=== PATIENT | female | born 2000 | race Caucasian/White ===

== ENCOUNTER 2025-10-01 21:16 | Emergency (ER) | payer OTHER, SELFPAY ==
--- NOTE | ~2025-10-01 | XR_ITS ---
CLINICAL HISTORY: lac form ux designer blade 4th digit 3 view right 4th digit Comparison: None Findings: No fractures or dislocations. No significant loss of joint space or osteophytes. Radiopaque linear object corresponds to the ux designer blade within the soft tissue of the 4th digit. IMPRESSION: 1. No evidence of acute osseous injury. 2. Radiopaque linear object corresponds to the ux designer blade within the soft tissue of the 4th digit. This document has been electronically signed by: Faye Roberts MD on 10/01/2025 23:00:35
[2025-10-01 21:47] VITALS: BP 119/56; PULSE 90; RESP 18; TEMP 36.8; O2SAT 98; BMI 24.0
--- NOTE | 2025-10-01 22:33 | ED.WOUNDLAC ---
HPI - Wound/Laceration General Chief Complaint: Wound/Laceration Stated Complaint: Injury Time Seen by Provider: 10/01/25 22:11 History of Present Illness ED Provider: Iva Romero NP HPI narrative: 24-year-old female who presents to the ED complaining of a finger laceration sustained to her right ring finger when she was trying to clean mineral technologist blades approximately 1 hour prior to arrival. She has 2 small lacerations, 1 to the tip of the fat pad of the finger, another to the MCP joint on the palmar surface. She does not know her last tetanus status. Bleeding controlled upon arrival to the ED. She denies any fever, chills, chest pain or shortness of breath, abdominal pain. Otherwise feeling well. Related Data Allergies Allergy/AdvReac Type Severity Reaction Status Date / Time No Known Allergies Allergy Verified 10/01/25 21:49 Review of Systems Review of Systems: ROS is otherwise negative unless mentioned in HPI. PMFSH Social History Social History Advance Directives: No Advance Directives Information Provided: Yes Physical Exam Exam: Exam: Nursing notes and vital signs reviewed. Constitutional: Well-appearing, NAD. Alert. Oriented X3. Eyes: Symmetrical. Neck: Normal inspection. Neck supple. CVS: Pulses normal. Respiratory: No respiratory distress. Skin: Skin warm and dry. Normal skin color. Small laceration 0.5 cm to the right hand ring finger, overlying the MCP joint. Additional small superficial laceration to the fat pad of this finger. Extremities: No lower extremity edema. Neuro: Oriented X 3. No motor deficit. Vital Signs: Vital Signs: Last Vital Signs Temp 98.2 F 10/01/25 21:47 Pulse 90 10/01/25 21:47 Resp 18 10/01/25 21:47 BP 119/56 L 10/01/25 21:47 Pulse Ox 98 10/01/25 21:47 O2 Del Method Room Air 10/01/25 21:47 BMI result Body Mass Index 24.0 Medications Administered Discontinued Medications Generic Name Dose Route Start Last Admin Trade Name Freq PRN Reason Stop Dose Admin Diphtheria/Tetanus/Acell Pertussis 0.5 ml 10/01/25 22:36 10/01/25 22:47 Diphth,Pertus(Acell),Tet Adult 0.5 Ml Syringe IM 10/01/25 22:37 0.5 ml .ONCE ONE Administration Lidocaine/Epinephrine/Tetracaine 3 ml 10/01/25 22:33 10/01/25 22:44 Lidocaine/Racepinep/Tetracaine 3 Ml Gel.Pf.Barb TOPICAL 10/01/25 22:34 3 ml ONCE ONE Administration Medical Decision Making Medical Decision Making [facility] Narrative: 10:30 PM 10/01/2025 (Iva Romero, GERRI): I assessed this patient in the PIT area, she presents for a finger laceration. She was cleaning a mineral technologist when she accidentally cut her finger, and to the larger laceration that is overlying the MCP joint of the finger there is fat protruding. We will plan to apply topical LET to the area is prior to the repair with sutures, and possibly applied Dermabond to the fat pad of the finger. We discussed the Tdap vaccine, she does not know her last vaccine, and does not want the vaccine today. I stressed the importance of getting the vaccine especially if her last is unknown. She will consider it. Pending topical LET application. 11:35 PM 10/01/2025 (Iva Romero, GERRI): Ring was removed from finger. X-ray report reports a mineral technologist blade , upon my review of the x-ray, this is clearly her ring that she had not removed prior to x-ray. She accepted the Tdap vaccine. Area was repaired with 1 suture. Agreeable with dc plan to follow up outpatient for removal. And return precautions. She is agreeable. Differential Diagnosis Differential Diagnoses: The differential diagnosis associated with the presentation includes Laceration, abrasion, cellulitis Admission/Observation Consideration of admission/observation: Escalation of care including admission/observation considered (Not indicated) Independent Interpretation I performed an independent interpretation of an: Plain X-Ray Interpretation: I do not agree with the radiologist interpretation; there is no foreign body within the fingers, she is wearing her ring. Radiology Impression Discussion of test interpretation with radiology: I have reviewed the radiologist's reading. Radiologist Impression: IMPRESSION: 1. No evidence of acute osseous injury. 2. Radiopaque linear object corresponds to the mineral technologist blade within the soft tissue of the 4th digit. Independent Historian Clinical information obtained from an independent historian. History obtained from or confirmed by: Other (Boyfriend) External Record Review None Chronic Conditions None Social Determinants Patient?s care significantly limited by Social Determinants of Health including: Problems related to primary support group Discharge Plan Discharge Clinical Impression: Laceration of finger, ring Patient Disposition: Home, Self-Care Instructions: Finger Laceration (ED) Additional Instructions: As we discussed, we placed 1 suture to the right hand, your ring finger. This suture should be removed within the next 7-10 days. If you develop any signs of infection which include redness, warmth, difficulty moving the finger, it is very important that you seek re-evaluation immediately. We updated your Tdap today. Please inform your PCP of this, so they are aware. Referrals: [facility] [Provider Group, Family Practice] Print Language: Khmer
--- OUTSIDE RECORDS SUMMARY | 2025-10-01 22:41 | XMS_ITS | Encounter Summary ---
Author Organization [facility] Address [address] [place], [place] [id number] Phone Care Team Providers Care Hog Room Supervisor Name Role Phone Fawn Galindo DO Primary Care Provider [phone] Reason for Visit * Reason Comments Med Refill Encounter Details Date Type Department Care Team (Late st Contact Info) Description 03/08/2018 Refill [facility] [place] [address] [place], [place] [id number] Fawn Galindo DO [address] [place] [address] Social History Tobacco Use Types Packs/Day Years Used Date Smoking Tobacco: Never Comments:Never smoker Comments Unknown Sex and Gender Information Value Date Recorded Sex Assigned at Not on file Legal Sex Female 5:09 PM EDT Gender Identity Not on file Sexual Orientation Not on file documented as of this encounter Miscellaneous Notes * Telephone Encounter - Kay Lemons LPN - 03/11/2018 11:25 AM EDT Seen in office * Telephone Encounter - Kay Lemons LPN - 03/08/2018 11:40 AM EDT SPRINTEC 28 DAY TABLET Last pe 03/17 Pe pending for 03/18 documented in this encounter Plan of Treatment Not on file documented as of this encounter Visit Diagnoses Not on filedocumented in this encounter Care Teams Hog Room Supervisor Relationship Specialty Start Date End Date Fawn Galindo DO [address] [place] [address] [place] [address] PCP - General 06/11/17 04/21/23 documented as of this encounter
--- OUTSIDE RECORDS SUMMARY | 2025-10-01 22:41 | XMS_ITS | Encounter Summary ---
Author Organization [facility] Address [address] [place] [address] Phone Care Team Providers Care Sales Marketing Manager Name Role Phone Fawn Galindo DO Primary Care Provider Reason for Visit * Reason Comments Med Refill Encounter Details Date Type Department Care Team ([facility] st Contact Info) Description 02/08/2019 Refill [facility] [place] [address] [place] [address] Fawn Galindo DO [address] [place] [address] Encounter for control pills maintenance Social History Tobacco Use Types Packs/Day Years Used Date Smoking Tobacco: Never Smokeless Tobacco: Never Comments:Never smoker Comments Unknown Sex and Gender Information Value Date Recorded Sex Assigned at Not on file Legal Sex Female 5:09 PM EDT Gender Identity Not on file Sexual Orientation Not on file documented as of this encounter Miscellaneous Notes * Telephone Encounter - Emelyn Cr LPN - 02/08/2019 1:07 PM EDT Pharm fax refill request OCP. EH documented in this encounter Plan of Treatment Not on file documented as of this encounter Visit Diagnoses Diagnosis Encounter for control pills maintenance Surveillance of previously prescribed contraceptive pill documented in this encounter Care Teams Sales Marketing Manager Relationship Specialty Start Date End Date Fawn Galindo DO [address] [place] [address] PCP - General 06/11/17 04/21/23 documented as of this encounter
--- OUTSIDE RECORDS SUMMARY | 2025-10-01 22:41 | XMS_ITS | Encounter Summary ---
Author Organization [facility] Address [address] [place] [address] Phone Care Team Providers Care Shop Clerk Name Role Phone Fawn Galindo DO Primary Care Provider [phone] Encounter Details Date Type Department Care Team (Late st Contact Info) Description 06/27/2014 Documentation [facility] Family Medicine [address] [place] [address] Family Medicine, Physician [address] [place], [place] [id number] Social History Tobacco Use Types Packs/Day Years Used Date Smoking Tobacco: Never Assessed Comments Unknown Sex and Gender Information Value Date Recorded Sex Assigned at Not on file Legal Sex Female 5:09 PM EDT Gender Identity Not on file Sexual Orientation Not on file documented as of this encounter Plan of Treatment Not on file documented as of this encounter Visit Diagnoses Not on filedocumented in this encounter Care Teams Shop Clerk Relationship Specialty Start Date End Date Fawn Galindo DO [address] [place] [address] PCP - General 06/11/17 04/21/23 documented as of this encounter
--- OUTSIDE RECORDS SUMMARY | 2025-10-01 22:41 | XMS_ITS | Encounter Summary ---
Author Organization [facility] Address [address] [place] [id number] Phone Care Team Providers Care Microbiology Teacher Name Role Phone Fawn Galindo DO Primary Care Provider [phone] Reason for Visit * Reason Comments Med Refill Encounter Details Date Type Department Care Team (Late st Contact Info) Description 02/08/2022 Refill [facility] [place] [address] [place] [address] Fawn Galindo DO [address] [place] [address] Encounter for control pills maintenance Social History Tobacco Use Types Packs/Day Years Used Date Smoking Tobacco: Never Smokeless Tobacco: Never Comments:Never smoker Alcohol Use Standard Drinks/Week Comments Never 0 (1 standard drink = 0.6 oz pur e alcohol) Hunger/Food Answer Date Recorded In the last 12 months, did y ou or your family ever eat less than you felt you should because there wasn't enough money for food? No 12/19/2021 Stable Housing Answer Date Recorded Are you worried that in the next 2 months you may not have stable housing? No 12/19/2021 Transportation Concerns Answer Date Rec orded In the last 12 months, have you or your family ever had to go without healthcare because you didn't have a way to get there? No 12/19/2021 Hazards in Home Answer Date Recorded Think about the place you li ve. Do you have problems with any of the following? Pests (mice or roaches), mold, no/not working smoke detectors, water leaks, no window guards. No 2021 Financing Utilities Answer Date Recorde d In the last 12 months, has t he electric, gas, oil, or water company threatened to shut off your services in your home? No 12/19/2021 Safety at Home Answer Date Recorded Are you or your family worried about feeling saf e in your home? No 12/19/2021 Outside Support Answer Date Recorded Do you feel that you need mo re support from other people or programs to help you care for yourself or your family? No 12/19/2021 Understanding Health Concerns Answer Da te Recorded Do you need help understandi ng your or your child's healthcare needs (diagnosis, medications, plan, etc.)? No 12/19/2021 Financing Health Concerns Answer Date R ecorded In the last 12 months, was t here a time when your child needed to see a doctor or get medications or supplies but could not because of cost? No 12/19/2021 Missing School or Work Answer Date [place] rded Did you or your child miss s chool or work because of a health problem that could have been avoided? No 12/19/2021 Comments No Sex and Gender Information Value Date Recorded Sex Assigned at Not on file Legal Sex Female 5:09 PM EDT Gender Identity Not on file Sexual Orientation Not on file documented as of this encounter Miscellaneous Notes * Telephone Encounter - Zoraida Humphrey LPN - 02/08/2022 11:25 AM EDT Faxed refill request / current with PE documented in this encounter Plan of Treatment Not on file documented as of this encounter Visit Diagnoses Diagnosis Encounter for control pills maintenance Surveillance of previously prescribed contraceptive pill documented in this encounter Care Teams Microbiology Teacher Relationship Specialty Start Date End Date Fawn Galindo DO [address] [facility] [place] [address] PCP - General 06/11/17 04/21/23 documented as of this encounter
--- OUTSIDE RECORDS SUMMARY | 2025-10-01 22:41 | XMS_ITS | Encounter Summary ---
Author Organization [facility] Address [address] [place] [address] Phone Care Team Providers Care Reverberatory Furnace Supervisor Name Role Phone Fawn Galindo DO Primary Care Provider [phone] Encounter Details Date Type Department Care Team (Late st Contact Info) Description 12/12/2010 Conversion Encounter [facility] [address] [place] [address] Social History Tobacco Use Types Packs/Day Years [...] on filedocumented in this encounter Care Teams Reverberatory Furnace Supervisor Relationship Specialty Start Date End Date Fawn Galindo DO [address] [place] [address] PCP - General 06/11/17 04/21/23 documented as of this encounter
--- OUTSIDE RECORDS SUMMARY | 2025-10-01 22:41 | XMS_ITS | Encounter Summary ---
Author Organization [facility] Address [address] [place] [address] Phone Care Team Providers Care Sand Molder Name Role Phone Fawn Galindo DO Primary Care Provider [phone] Encounter Details Date Type Department Care Team (Late st Contact Info) Description 05/02/2012 Documentation [facility] [place] [address] [place] [address] Family Medicine, Physician [address], [place] [id number] Social History Tobacco Use Types Packs/Day Years [...] on filedocumented in this encounter Care Teams Sand Molder Relationship Specialty Start Date End Date Fawn Galindo DO [address] [place] [address] PCP - General 06/11/17 04/21/23 documented as of this encounter
--- OUTSIDE RECORDS SUMMARY | 2025-10-01 22:41 | XMS_ITS | Encounter Summary ---
Author Organization [facility] Address [address] [place] [address] Phone Care Team Providers Care Surety Bond Agent Name Role Phone Fawn Galindo DO Primary Care Provider [phone] Encounter Details Date Type Department Care Team (Late st Contact Info) Description 06/17/2017 Conversion Encounter [facility] [place] [address] [place] [address] Social History Tobacco Use Types Packs/Day Years [...] on filedocumented in this encounter Care Teams Surety Bond Agent Relationship Specialty Start Date End Date Fawn Galindo DO [address] [place] [address] PCP - General 06/11/17 04/21/23 documented as of this encounter
--- OUTSIDE RECORDS SUMMARY | 2025-10-01 22:41 | XMS_ITS | Clinical Summary ---
Author Organization [facility] Address [address] [place] [address] Phone Care Team Providers Care Radiation Engineer Name Role Phone Unavailable Primary Care Provider Unavailabl e Allergies No known active allergies Medications Ascorbic Acid (VITAMIN C) 250 MG chewable tablet Chew. Active Zinc 100 MG tablet Take by mouth. Active Sprintec 28 0.25-35 MG-MCG per tabletIndication s:Encounter for control pills maintenance TAKE 1 TABLET BY MOUTH EVERY DAY 84 tablet 02/08/2022 Active Active Problems No known active problems Resolved Problems Problem Noted Date Diagnosed Date Resolved Date Panic attack 07/30/2020 09/30/2020 Overview (07/30/2020): 07/30/2020 (age 19yr): related specifically to fear of throat closing and not being able to swallow. She believes she has large tonsil with tonsilliths. Normal exam today. Referred to ENT and encouraged in house behavioral health referral. Assessment & Plan (07/30/2020 2:48 PM EDT): 07/30/2020 (age 19yr): related specifically to fear of throat closing and not being able to swallow. She believes she has large tonsil with tonsilliths. Normal exam today. Referred to ENT and encouraged in house behavioral health referral. Tonsillolith 07/30/2020 12/19/2021 Overview (09/30/2020): Referred to ENT- having tonsillec in Also having panic attacks related specifically to fear of throat closing and not being able to swallow. Encouraged referral. Assessment & Plan (09/30/2020 10:06 AM EST): Saw ENT- having tonsillec on 10/11/20 Ingrown toenail 08/28/2018 06/07/2019 Overview (08/28/2018): Saw podiatry- had infection, keflex rx, nail removal. 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 Exercise-induced asthma 05/24/2015 050 07/2018 Immunizations Immunization Administration Dates Next Due DTaP 12/30/2005, 2,06/28/2001,04/26,03/03/2001 H1N1 Inj 08/17/2009 HPV, Quadrivalent 07/24/2014,03/22/2014,01/20/20 14 Hep A, ped/adol 07/24/2014,01/19/2014 Hep B, ped/adol 03/29/2002,06/28/2001,2000 Hib (HbOC) 03/29/2002, 1,04/29/2001,03/03 IPV 03/03/2006, 6,06/30/2002,04/29 Influenza Split 11/17/2012 Influenza, injectable, MDCK, preservative free, quadrivalent 08/16/2018,08/11/2017,08/17/2016 Influenza, injectable, quadr ivalent, preservative free 07/30/2020,09/13/2019,07/24/2014,08/18 Influenza, injectable, trivalent 09/19/2009,08/01 MMR 12/30/2005,12/28/2001 Meningococcal B Trumenba 09/30/2020,06/07/2019 Meningococcal Conj (Menactra) MCV4P 03/08/2017,0 01/16/2013 Pneumococcal Polysaccharide 06/28/2001, 1,03/03/2001 Tdap 01/16/2013 Varicella 01/06/2012,12/28/2001 Family History Medical History Relation Name Comments No Known Problems Father Ernesto Hypertension Maternal Grandfather Hypertension Maternal Grandmother No Known Problems Mother Priti Relation Name Status Comments Father Ernesto Alive Father: Alive a nd well, Hyperlipidemia Maternal Grandfather Alive Maternal Grandmother Alive Materna l grandmother: Hypertension Mother Priti Alive Mother: Alive a nd well Paternal Grandfather Alive Paternal Grandmother Alive Social History Tobacco Use Types Packs/Day Years Used Date Smoking Tobacco: Never Smokeless Tobacco: Never Tobacco Cessation:Counseling Given: Yes Comments:Never smoker Alcohol Use Standard Drinks/Week Comments [...] on file Sexual Orientation Not on file Last Filed Vital Signs Vital Sign Reading Time Taken Comments Blood Pressure 119/79 12/19/2021 10:55 AM EST Pulse 82 12/19/2021 10:55 AM EST Temperature 36.4 C (97.6 F) 12/19/2021 10:55 AM EST Respiratory Rate - - Oxygen Saturation - - Inhaled Oxygen Concentration - - Weight 63.4 kg (139 lb 12.8 oz) 022 10:55 AM EST Height 164.5 cm (5' 4.75 ) 12/19/2021 1 0:55 AM EST Body Mass Index 23.44 12/19/2021 10:55 AM EST Plan of Treatment Health Maintenance Due Date Last Done Comments DTaP,Tdap,and Td Vaccines (7 - Td or Tdap) 01/16/2023 01/16/2013, 12/30/2005, 06/30/2002, Additional history exists Influenza Vaccines (#1) 2025 07/30/20 20, 09/13/2019, 08/16/2018, Additional history exists COVID-19 Vaccine ( season) 2025 Pneumococcal Vaccine Aged Out 06/28/2001, 04/29/2001, 03/03/2001 No longer eligible based on patient's age to complete this topic HIB Vaccines Completed 03/29/2002, 06/02, 04/29/2001, Additional history exists Hepatitis B Vaccines Completed 03/29/2002, 06/28/2001, 2000 MMR Vaccines Completed 12/30/2005, 12/28/2001 IPV Vaccines Completed 03/03/2006, 11/2005, 06/30/2002, Additional history exists Varicella Vaccines Completed 01/06/2012, 12/28/2001 HPV Vaccines Completed 07/24/2014, 03/02, 01/19/2014 Hepatitis A Vaccines Completed 07/24/2014, 01/20/20 14 Meningococcal Vaccine Completed 03/08/2017, 013 Men B Vaccine Completed 09/30/2020, 06/07/2019 Procedures * Due to [facility] law, this organization might not be sharing sensitive test results. Procedure Name Priority Date/Time Associated Diagnosis Comments CHLAMYDIA AND GONORRHEA, AMPLIFIED Routine 12/19/2021 11:19 AM EST Screening for viral and chlamydial diseases from Last 3 Months or Most Recently Relevant to Health Maintenance Results * Due to [place] [employer] law, this organization might not be sharing sensitive test results. * Chlamydia and Gonorrhoea, Amplified (Urine) (12/19/2021 11:19 AM EST) Chlamydia Trachomatis, DNA Probe NEGATIVE (NEG) [facility] Comment: No Chlamydia Trachomatis RNA detected in this patient's sample (REFERENCE RANGE/NORMAL VALUE: NOT DETECTED) Note: This test uses scheduler conveyor- mediated amplification method to detect rRNA from C. Trachomatis URINE GC AMP PROBE NEGATIVE (NEG) [facility] Comment: No Neisseria Gonorrhoeae RNA detected in this patient's sample (REFERENCE RANGE/NORMAL VALUE: NOT DETECTED) NOTE: This test uses scheduler conveyor-mediated amplification method to detect rRNA from N.Gonorrhoeae. A negative result does not preclude infection. In the case of a negative urine result, testing of an endocervical(female) or urethral (male) specimen is recommended if there is high clinical suspicion of infection. Due to very high sensitivity of Nucleic Acid Amplification Test, false positive results may occur. Therefore, specimen handling is extremely important. In patients in whom the disease is unlikely, additional sample for testing should be considered after an initial positive result. The performance characteristics of this test have not been evaluated in children. The Aptima Combo2 assay is not intended for the evaluation of suspected sexual abuse or for other medico-legal indications. The ordering provider should assess if the patient had consensual sex without risk of sexual abuse. Consult the [facility] if needed. Contact phone number . Therapeutic failure or success cannot be determined with the Aptima Combo2 assay since nucleic acid may persist following appropriate antimicrobial therapy. The Centers for Disease Control and Prevention (CDC) recommends confirmatory retesting using culture or a different nucleic acid amplification test when positive results occur, if indicated. Testing performed or reported by [facility], a Service of [facility], [address], [place] [address] Karthik Sam MD, Mercerizing Range Feeder [facility]# [id number] Urine (Urine, Random (not clean void)) 12/19/2021 11:19 AM EST 12/22/2021 9:59 PM EST us Fawn Galindo DO LAB MICROBIOLOGY - GENERAL ORDER TRICE Final Result [facility] from Last 3 Months or Most Recently Relevant to Health Maintenance
[2025-10-01] MEDS: Lidocaine/Racepinep/Tetracaine 3 ML GEL.PF.APP TOPICAL (22:44)
[2025-10-01] MEDS: Diphth,Pertus(ACell),Tet Adult 0.5 ML SYRINGE IM (22:47)
[2025-10-02 00:26] VITALS: BP 119/56; PULSE 90; RESP 18; TEMP 36.8; O2SAT 98
== END 2025-10-02 00:26 | disposition home or self-care (01) ==
PROVIDERS: Emergency Provider Emergency Medicine Emergency Medical Services
DX: S61.214A Laceration without foreign body of right ring finger without damage to nail, initial encounter (principal); Z23 Encounter for immunization; W29.0XXA Contact with powered kitchen appliance, initial encounter; Y93.E9 Activity, other interior property and clothing maintenance; Y92.9 Unspecified place or not applicable; Y99.9 Unspecified external cause status
CPT/HCPCS: 12001; 73140; 90471; 90715; 99282; 99284

== ENCOUNTER → 2025-10-01 22:11 | Outpatient (BNV) | payer OTHER, SELFPAY | PROVIDERS: Emergency Provider Emergency Medicine Emergency Medical Services; Visit Provider Student in an Organized Health Care Education/Training Program | DX: S61.214A Laceration without foreign body of right ring finger without damage to nail, initial encounter (principal); W29.0XXA Contact with powered kitchen appliance, initial encounter | CPT/HCPCS: 73140 ==